=== PATIENT | female | born 1960 | race Caucasian/White ===

== ENCOUNTER 2019-05-01 20:02 | Emergency (ER) | payer BC ==
[~2019-05-01] VITALS: Ht 165.1 cm; Wt 63.5 kg
[2019-05-01] MEDS ORDERED: SYMBICORT160 MCG/4. INH (20:32)
[2019-05-01 21:47] LABS: CALCIUM 9.5 mg/dL (8.5-10.1); CREATININE 0.6 mg/dL (0.6-1.0); POTASSIUM 3.9 mmol/L (3.5-5.1)
[2019-05-01] MEDS ORDERED: MEDROLDOSEPACK PO (23:15)
[2019-05-01] MEDS ORDERED: NORFLEX100 MG PO (23:15)
[2019-05-01] MEDS ORDERED: NAPROSYN500 M1 PO (23:15)
[2019-05-01 23:40] VITALS: BP 134/72
== END 2019-05-01 23:40 | disposition home or self-care (01) ==
LOC: ER 20:02
PROVIDERS: Emergency Medicine
DX: M79.605 Pain in left leg (principal)